=== PATIENT | female | born 1945 | race Caucasian/White ===

== ENCOUNTER 2017-04-26 09:00 | Observation (INO) | payer OTHER ==
[~2017-04-26] VITALS: Ht 162.6 cm; Wt 72.6 kg
--- NOTE | ~2017-04-26 | O ---
[facility] [place] [address] OPERATIVE REPORT Name: ONEAL CAM Room #: 405-P [facility] M.R.#: [id number] Admission: 04/26/17 Attend Phys: Alejandro Dupont MD Discharge: Date of : 45 Report #: [id number] THIS REPORT FOR: //name// CC: Alejandro Asencio DATE OF SERVICE: 04/26/2017 SERVICE: Orthopedics. FACILITY: [facility]. SURGEON: Alejandro Dupont MD ASSISTANTS: None. PREOPERATIVE DIAGNOSIS: Right ankle fracture dislocation. POSTOPERATIVE DIAGNOSIS: Right ankle fracture dislocation. PROCEDURE: 1. Examination under anesthesia, right ankle. 2. Closed reduction and splinting, right ankle fracture dislocation. ANESTHESIA: MAC. COMPLICATIONS: None. DRAINS: None. SPECIMENS: None. ESTIMATED BLOOD LOSS: 0 mL. FINDINGS: Stable ankle mortise after closed reduction. No external fixator indicated. HISTORY AND INDICATIONS: The patient is a 71-year-old female who was playing pickleball earlier today when she fell and sustained a right ankle fracture dislocation. She presented to the Emergency Room where she was having impending compromise to the medial aspect soft tissues and so she underwent an emergent closed reduction by the Emergency Room staff. Post-reduction x-rays indicated some residual subluxation, although the immediate risk to the medial soft tissues had been alleviated. Based on the appearance on the x-rays, I recommended evaluation in the operating room with plans for repeat closed reduction and splinting versus possible external fixation. Risks, benefits, [facility] [address] [place] [address] OPERATIVE REPORT Name: ONEAL CAM Room #: 405-P [facility] M.R.#: [id number] Admission: 04/26/17 Attend Phys: Alejandro Dupont MD Discharge: Date of : 45 Report #: [id number] alternatives and indication of surgery were discussed with the patient in detail as well as her and their questions were answered. PROCEDURE IN DETAIL: After right lower extremity was correctly identified as the operative extremity, the patient was taken to the operating room where she was placed supine on the operating table and monitored anesthetic care was induced without complication. She was padded appropriately. Timeout procedure was performed. The right leg was assessed after the splint was removed. Gentle traction and slight lateral to medial reduction maneuver was performed and the ankle was felt to firmly reduce within the ankle mortise. At this point, simple pressure holding the leg without further reduction manipulation indicated that on multiple planes, the ankle was stable and I felt that external fixation was not going to provide additional skeletal stability beyond what was already present and I therefore decided that it would not indicated as the risks outweigh the benefit. Therefore, with the ankle reduced, a well-padded short-leg splint was then applied. I took multiple x-rays again including AP, mortise and cross table lateral throughout to ensure that there was no recurrent subluxation and at the conclusion of the splinting after the splint had been allowed to harden with a well placed mold, took final x-rays to confirm anatomic reduction of the talus beneath the tibia. This was a highly comminuted trimalleolar ankle fracture and she will require open reduction and internal fixation, but we will obtain a CT scan first for definitive treatment plans. There were no complications. No counts were performed since there was no open incision made. The patient was transferred from the operating room, taken to the recovery room in a stable condition. <ELECTRONICALLY SIGNED> By: Alejandro Dupont MD 04/26/17 [id number] Alejandro Dupont MD /nt
[2017-04-26 09:27] VITALS: BP 135/57
[2017-04-26 09:54] LABS: HEMATOCRIT 43.3 % (37.0-47.0); HEMOGLOBIN 14.6 gm/dL (12.0-15.0); MCH 28.9 pg (26.0-34.0); MCHC 33.8 g/dL (28.0-37.0); MCV 85.4 fL (80.0-100.0); RBC 5.07 mil/uL (4.20-5.00); RDW 13.1 % (10.5-14.5); WBC 14.1 thou/uL (4.0-11.0)
[2017-04-26] MEDS ORDERED: METOPROLOL SUCC50 MG PO (10:55)
[2017-04-26] MEDS ORDERED: ZOCOR20 MG PO (10:56)
[2017-04-26 12:42] LABS: CALCIUM 8.8 mg/dL (8.5-10.1); CREATININE 0.9 mg/dL (0.6-1.0); POTASSIUM 3.7 mmol/L (3.5-5.1)
[2017-04-26 12:47] LABS: APTT 27.8 Seconds (24.5-32.8); INR 1.1
[2017-04-26 13:06] VITALS: BP 135/57
[2017-04-26 17:05] VITALS: BP 111/40
[2017-04-26 20:28] VITALS: BP 110/44
[2017-04-27 04:29] VITALS: BP 101/52
[2017-04-27 12:00] VITALS: BP 101/52
[2017-05-03] MEDS ORDERED: ONDANSETRON HCL4 M2 PO (09:10)
[2017-05-03] MEDS ORDERED: OXYCODONE HCL 55 MG PO (09:10)
[2017-05-03] MEDS ORDERED: XARELTO10 MG PO (09:11)
[2017-05-03] MEDS ORDERED: TYLENOL EXTRA500 MG PO (09:12)
[2017-05-03] MEDS ORDERED: ZANTAC 150MG T150 MG PO (09:23)
== END 2017-04-27 13:00 | disposition home or self-care (01) ==
LOC: ER 09:00 → EROBS 12:45 → 4N 12:45 → ENTRNSPT 04-27 12:54 → EDTRNSPTSTS 04-27 12:56 → 4N 04-27 13:00
PROVIDERS: Emergency Medicine
DX: S82.851A Displaced trimalleolar fracture of right lower leg, initial encounter for closed fracture (principal); E78.5 Hyperlipidemia, unspecified; W19.XXXA Unspecified fall, initial encounter; Y93.89 Activity, other specified; Y92.89 Other specified places as the place of occurrence of the external cause; Y99.8 Other external cause status; Z23 Encounter for immunization

== ENCOUNTER 2017-05-05 05:27 | Day surgery (SDC) | payer OTHER ==
[~2017-05-05] VITALS: Ht 160 cm; Wt 81.2 kg
--- NOTE | ~2017-05-05 | O ---
[address] [place] [address] OPERATIVE REPORT Name: ONEAL CAM Room #: DEP [facility] M.R.#: [id number] Admission: 05/05/17 Attend Phys: Cali Chadwick MD Discharge: 05/06/17 Date of : 45 Report #: [id number] THIS REPORT FOR: //name// CC: Cali Asencio PREOPERATIVE DIAGNOSIS: Right ankle trimalleolar fracture. POSTOPERATIVE DIAGNOSIS: Right ankle trimalleolar fracture. PROCEDURE: Right ankle trimalleolar fracture open reduction internal fixation. SURGEON: Cali Chadwick MD ANESTHESIA: General. ESTIMATED BLOOD LOSS: Minimal. DRAINS: No drains. TOURNIQUET TIME: One hour. DESCRIPTION OF PROCEDURE: The patient brought to the operating room where she was placed under general anesthesia. Once under adequate general anesthesia, her right lower extremity was prepped and draped in sterile manner. The extremity was elevated, exsanguinated and a tourniquet placed to 300 mmHg. A lateral incision, approximately 10 cm in length, was made over the distal fibula. This was dissected down through the soft tissue to the fracture site, any hematoma was evacuated from the fracture site and any soft tissue was removed utilizing a rongeur. A bone reduction tenaculum was then placed across the fracture site. Provisional fixation was achieved with a single 3.5 mm cortical lag screw. Subsequent to this, a posterolateral 1/3 tubular neutralization plate was placed, 3 screws were able to be fitted distal to the fracture site and 3 screws proximal for excellent fixation. Excellent fixation and alignment was achieved in this manner as verified under fluoroscopy. We then proceeded medially and a 5 cm incision over the medial malleolus and the comminuted fracture there was made. Dissection was carried down to the fracture site. There were 2 separate fracture fragments which were provisionally held with a K-wire. Subsequent fixation to the distal tibia was then achieved with two 4.0 cannulated screws placed under fluoroscopic guidance. Excellent fixation and alignment was achieved in this manner as verified under fluoroscopy. Once complete, the wounds were irrigated copiously and closed with 2-0 Vicryl in subcutaneous tissues and desiree were used for the skin. The wounds were dressed with Xeroform, 4 x 4s, and a sterile soft compressive dressing and a short leg cast was placed. Tourniquet was let down at approximately 1 hour. Toes were pink and warm with good capillary refill. [facility] [address] [place] [address] OPERATIVE REPORT Name: ONEAL CAM Room #: DEP [facility].R.#: [id number] Admission: 05/05/17 Attend Phys: Cali Chadwick MD Discharge: 05/06/17 Date of : 45 Report #: [id number] There were no complications from the procedure. The patient tolerated the procedure well and went to the recovery room without incident. <ELECTRONICALLY SIGNED> By: Cali Chadwick MD 05/21/17 1416 1436 1454 Cali Chadwick MD /nt
--- NOTE | ~2017-05-05 | EKG ---
[place] [address] [facility] [place] [address] ELECTROCARDIOGRAM REPORT Name: ONEAL CAM Room #: 353-P [facility]..#: [id number] Admission: 05/05/17 Attend Phys: Cali Chadwick MD Discharge: Date of : 45 Report #: [id number] THIS REPORT FOR: //name// [facility] Test Date: 2017-05-05 Test Time: 11:36:36 Pat Name: ONEAL CAM Department: Room: Gender: F Service Team Leader: MARKY : 1945 Requested By: Cali Chadwick Order Number: [id number] MD: Justin Deras Measurements Intervals [place] Rate: 74 P: 58 TX: 115 QRS: 11 QRSD: 94 T: -8 QT: 402 QTc: 446 Interpretive Statements Sinus rhythm Borderline short [place] interval Abnormal R-wave progression, early transition Borderline repolarization abnormality Baseline wander in lead(s) V3 No previous ECG available for comparison Electronically Signed On 05-06-2017 8:21:52 [employer] by Justin Deras [email or web address] <ELECTRONICALLY SIGNED> By: Justin Deras MD, [facility] 05/06/17 0821 1136 1136 Justin Deras MD, [facility] /EPI
[~2017-05-05 05:27] MED LIST: METOPROLOL SUCC50 MG PO; ONDANSETRON HCL4 M2 PO; OXYCODONE HCL 55 MG PO; TYLENOL EXTRA500 MG PO; XARELTO10 MG PO; ZANTAC 150MG T150 MG PO; ZOCOR20 MG PO
[2017-05-05 12:00] VITALS: BP 139/73
[2017-05-05 16:48] VITALS: BP 129/62
[2017-05-05] MEDS ORDERED: VITAMIN D3400 UNIT PO (17:17)
[2017-05-05] MEDS ORDERED: TUMS PO (17:18)
[2017-05-05] MEDS ORDERED: CENTRUM SILVER1 EAC4 PO (17:18)
[2017-05-05] MEDS ORDERED: COQ-10100 MG PO (17:18)
[2017-05-05 20:02] VITALS: BP 120/59
[2017-05-05 23:10] VITALS: BP 116/55
[2017-05-06 04:20] VITALS: BP 128/56
[2017-05-06 05:33] LABS: HEMATOCRIT 37.7 % (37.0-47.0); HEMOGLOBIN 12.5 gm/dL (12.0-15.0)
[2017-05-06 05:39] LABS: POTASSIUM 4.2 mmol/L (3.5-5.1)
[2017-05-06] MEDS ORDERED: OXYCODONE-APAP1 EAC6 PO (08:26)
[2017-05-06] MEDS ORDERED: XARELTO10 MG PO (08:27)
[2017-05-06 08:43] VITALS: BP 117/60
[2017-05-06 08:47] VITALS: BP 117/60
== END 2017-05-06 10:19 | disposition home or self-care (01) ==
LOC: OR 05:27 → PRE 15:38 → EDSTATUS 15:55 → OR 15:57 → 3W 16:34 → ENTRNSPT 05-06 10:11 → EDTRNSPTSTS 05-06 10:15 → OR 05-06 10:19
PROVIDERS: Orthopaedic Surgery Foot and Ankle Surgery
DX: S82.851A Displaced trimalleolar fracture of right lower leg, initial encounter for closed fracture (principal); W18.30XA Fall on same level, unspecified, initial encounter; Y93.73 Activity, racquet and hand sports; Y92.89 Other specified places as the place of occurrence of the external cause; Y99.9 Unspecified external cause status; E78.5 Hyperlipidemia, unspecified; I34.0 Nonrheumatic mitral (valve) insufficiency; I10 Essential (primary) hypertension; K21.9 Gastro-esophageal reflux disease without esophagitis; Z98.890 Other specified postprocedural states
CPT/HCPCS: 10779; 50010; 50101; 50343; 50386; 51122; 51131; 51210; 51412; 51495; 52124; 56524; 56525; 56667; 57091; 62110; 62900; 64041; 70005